=== PATIENT | female | born 1975 | race Caucasian/White ===

== ENCOUNTER 2018-11-05 11:26 | Emergency (ER) | payer BC, OTHER ==
[2018-11-05 12:19] VITALS: BP 123/76
--- NOTE | 2018-11-05 12:23 | UC ---
Complaint Female HPI - HPI Summary HPI Summary: Dysuria starting this morning without fever, vomiting or flank pain. This feels similar to prior UTI. Last one was about 4-6 mo ago. 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 No vaginal symptoms, discharge or swelling. Monogamous. [place] tubal ligation. - History Of Current Complaint Stated Complaint: URINARY COMPLAINT Time Seen by Provider: 11/05/18 12:12 Hx Obtained From: Patient Onset/Duration: Gradual Onset, Lasting Hours Timing: Constant, Lasting Hours Severity Initially: Mild Severity Currently: Mild Pain Intensity: 2 Character: Burning Aggravating Factor(s): Urination Alleviating Factor(s): Nothing Associated Signs And Symptoms: Negative: Fever, Back Pain, Vaginal Bleeding/ Discharge, Vaginal Discharge, Nausea, Vomiting(# Of Episodes =), Genital Swelling, Genital Blisters Related Hx: Similar Episode/Dx as: - prior UTI. - Allergies/Home Medications Allergies/Adverse Reactions: Allergies Allergy/AdvReac Type Severity Reaction Status Date / Time Penicillins Allergy Unknown Verified 11/05/18 12:12 Reaction Details Home Medications: Home Medications Aspirin/Acetaminophen/Caffeine [Excedrin Migraine Caplet] 1 each PO ONCE [History Confirmed 11/05/18] guaiFENesin [Mucinex] 600 mg PO ONCE 11/05/18 [History Confirmed 11/05/18] PMH/Surg Hx/FS Hx/Imm Hx Previously Healthy: No - UTI, nephrectomy. - Surgical History Surgical History: Yes Surgery Procedure, Year, and Place: left kidney removed. tubal ligation. one ovary - Family History Known Family History: Positive: Non-Contributory - Social History Lives: With Family Alcohol Use: Occasionally Substance Use Type: None Smoking Status (MU): Never Smoked Tobacco Review of Systems All Other Systems Reviewed And Are Negative: Yes Genitourinary: Positive: Dysuria Physical Exam Triage Information Reviewed: Yes Appearance: Well-Appearing, No Pain Distress, Obese Vital Signs: Initial Vital Signs Temp 98.3 F 11/05/18 12:13 Pulse 83 11/05/18 12:13 Resp 16 11/05/18 12:13 BP 123/76 11/05/18 12:13 Pulse Ox 98 11/05/18 12:13 Vital Signs Reviewed: Yes Eyes: Positive: Conjunctiva Clear ENT: Positive: Normal ENT inspection Neck: Negative: Nuchal Rigidity Respiratory: Positive: Chest non-tender, Lungs clear, Normal breath sounds, No respiratory distress, No accessory muscle use. Negative: Respiratory distress, Decreased breath sounds, Accessory muscle use, Crackles, Rhonchi, Stridor Cardiovascular: Positive: RRR, No Murmur, Pulses Normal Abdomen Description: Positive: No Organomegaly, Soft. Negative: CVA Tenderness (R), CVA Tenderness (L), Distended, Guarding Musculoskeletal: Positive: Strength Intact, ROM Intact, No Edema Neurological: Positive: Alert, Muscle Tone Normal. Negative: Fatigued Psychological: Positive: Age Appropriate Behavior Skin: Negative: Rashes Complaint Female Dx - Course Course Of Treatment: Pt was warned that with one remaining kidney it is very important to return for any worsening symptoms at all. - Differential Dx/Diagnosis Provider Diagnosis: UTI (urinary tract infection) Discharge - Sign-Out/Discharge Documenting (check all that apply): Patient Departure All imaging exams completed and their final reports reviewed: No Studies - Discharge Plan Condition: Good Disposition: HOME Prescriptions: Ciprofloxacin TAB* [Cipro 500 MG TAB*] 500 mg PO BID #14 tab Patient Education Materials: Urinary Tract Infection in Women (ED) Referrals: No Primary Care Phys,NOPCP [Primary Care Provider] - Additional Instructions: return here immediately for any worsening or new symptoms. - Billing Disposition and Condition Condition: GOOD Disposition: Home
== END 2018-11-05 12:23 | disposition home or self-care (01) ==
LOC: UCCORT 11:26
DX: N39.0 Urinary tract infection, site not specified (principal); Q60.0 Renal agenesis, unilateral; Z87.440 Personal history of urinary (tract) infections; Z88.0 Allergy status to penicillin
CPT/HCPCS: 99202; G0463